=== PATIENT | female | born 1945 | race Caucasian/White ===

== ENCOUNTER 2019-07-26 15:15 | Outpatient (RCR) | payer MEDICARE, SELFPAY ==
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
--- NOTE | 2019-08-22 09:41 | PT.OPDS ---
Current Diagnoses Complete rotator cuff tear or rupture of left shoulder, not specified as traumatic (07/26/19) Visit Care Team Role Provider Type Nancy Pathak MD Primary Care Provider Physician Specialty: Internal Medicine Address: [address] [place] [address], [id number] Email: Gael Murphy MD Attending Provider Physician Specialty: Orthopedic Surgery Address: [address] [place] [address], [address] Email: [email or web address] Visit Number Visit Number 10/03 Discharge Summary Protocol: Document 08/22/19 09:41 [facility] (Rec: 08/22/19 09:41 [facility] [id number]) Physical Therapy Assessment Assessment Summary Assessment Pt was making progress with ROM and ability to use shoulder with 2 sessions she attended, but pt moved to [place] so no longer attending PT at this clinic. DC at this time. Physical Therapy Plan Discharge Physical Therapy Discharge Reasons Patient Request
== END 2019-07-26 16:15 ==
LOC: PHYS 15:15
PROVIDERS: PCP Hospitalist; Visit Provider Orthopaedic Surgery
DX: M75.122 Complete rotator cuff tear or rupture of left shoulder, not specified as traumatic (principal)
CPT/HCPCS: 97010; 97110; 97140; 97162